=== PATIENT | female | born 1965 | race American Indian/Alaskan Native ===

== ENCOUNTER 2017-03-10 07:47 | Emergency (ER) | payer OTHER ==
[2017-03-10 09:02] LABS: Basophils % (Auto) 0.1 % (0.0-1.8); Eosinophils % (Auto) 0.3 % (0.0-4.3); Hematocrit 43.9 % (30.3-42.9); Hemoglobin 14.8 gm/dl (10.1-14.3); Mean Corpuscular HGB Conc 34 % (30-34); Mean Corpuscular Hemoglobin 31 pg (28-32); Mean Corpuscular Volume 91 fl (79-97); Red Blood Count 4.84 M/mm3 (3.65-5.03); Red Cell Distribution Width 13.9 % (13.2-15.2); White Blood Count 4.5 K/mm3 (4.5-11.0)
[2017-03-10 09:06] LABS: Platelet Count 162 K/mm3 (140-440)
[2017-03-10] MEDS ORDERED: ZOFRAN IV ONE (09:12)
[2017-03-10] MEDS ORDERED: TORADOL IV ONE (09:12)
[2017-03-10] MEDS ORDERED: NACL 0.9% 1000 ML 1,000 ML IV ONE (09:12)
[2017-03-10 09:33] LABS: Alanine Aminotransferase 16 units/L (7-56); Albumin 3.3 g/dL (3.9-5); Albumin/Globulin Ratio 0.8 %; Alkaline Phosphatase 96 units/L (35-129); Anion Gap 19 mmol/L; BUN/Creatinine Ratio 18; Blood Urea Nitrogen 11 mg/dL (7-17); Calcium 8.6 mg/dL (8.4-10.2); Carbon Dioxide 20 mmol/L (22-30); Chloride 102.5 mmol/L (98-107); Glucose 94 mg/dL (65-100); Lipase 50 units/L (13-60); Potassium 4.6 mmol/L (3.6-5.0); Sodium 137 mmol/L (137-145); Total Protein 7.4 g/dL (6.3-8.2)
[2017-03-10] MEDS ORDERED: NACL ONE (09:46)
[2017-03-10] MEDS ORDERED: ZOFRAN ODT PO ONE (10:33)
[2017-03-10] MEDS ORDERED: TORADOL IM ONE (10:33)
--- NOTE | 2017-03-10 12:01 | Emergency Department Report ---
ED Abdominal Pain HPI - General Chief Complaint: Abdominal Pain Stated Complaint: ABDOMINAL PAIN/N/V Time Seen by Provider: 03/10/17 10:26 Source: patient, EMS Mode of arrival: Wheelchair Limitations: No Limitations - History of Present Illness MD Complaint: abdominal pain Onset/Timin (day) -: Gradual Time: 20:00 Location: diffuse Radiation: none Migration to: no migration Severity: moderate Severity scale (0 -10): 0 Quality: cramping Consistency: intermittent Improves With: nothing Worsens With: nothing Context: possible food poisoning (patient says she has some chicken last night which she thinks might have triggered this) Associated Symptoms: nausea, vomiting. denies: diarrhea - Related Data Previous Rx's Medication Instructions Recorded Last Taken Type Dicyclomine [Bentyl] 10 mg PO QID PRN 5 Days #20 capsule 03/10/17 Unknown Rx Ondansetron [Zofran Odt] 4 mg PO Q8HR #20 tab.rapdis 03/10/17 Unknown Rx Allergies Allergy/AdvReac Type Severity Reaction Status Date / Time No Known Allergies Allergy Unverified 03/10/17 07:58 ED Review of Systems ROS: Stated complaint: ABDOMINAL PAIN/N/V Other details as noted in HPI Comment: All other systems reviewed and negative ED Past Medical Hx - Past Medical History Previous Medical History?: No - Surgical History Past Surgical History?: Yes 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 - Social History Smoking Status: Never Smoker Substance Use Type: None - Medications Home Medications: Home Medications Medication Instructions Recorded Confirmed Last Taken Type Dicyclomine [Bentyl] 10 mg PO QID PRN 5 Days #20 capsule 03/10/17 Unknown Rx Ondansetron [Zofran Odt] 4 mg PO Q8HR #20 tab.rapdis 03/10/17 Unknown Rx ED Physical Exam - General Limitations: No Limitations General appearance: alert, in no apparent distress - Head Head exam: Present: atraumatic, normocephalic - Eye Eye exam: Present: normal appearance - ENT ENT exam: Present: mucous membranes moist - Neck Neck exam: Present: normal inspection - Respiratory Respiratory exam: Present: normal lung sounds bilaterally. Absent: respiratory distress - Cardiovascular Cardiovascular Exam: Present: regular rate, normal rhythm. Absent: systolic murmur, diastolic murmur, rubs, gallop - GI/Abdominal GI/Abdominal exam: Present: soft, tenderness (mild periumbilical tenderness), normal bowel sounds - Rectal Rectal exam: Present: deferred - Extremities Exam Extremities exam: Present: normal inspection - Back Exam Back exam: Present: normal inspection - Neurological Exam Neurological exam: Present: alert, oriented X3 - Psychiatric Psychiatric exam: Present: normal affect, normal mood - Skin Skin exam: Present: warm, dry, intact, normal color. Absent: rash ED Course Vital Signs 03/10/17 03/10/17 03/10/17 07:58 08:20 08:30 Temperature 99.4 F Pulse Rate 97 H Respiratory 18 Rate Blood Pressure 119/69 95/51 O2 Sat by Pulse 99 98 100 Oximetry 03/10/17 03/10/17 03/10/17 08:42 08:45 09:00 Temperature Pulse Rate Respiratory 16 Rate Blood Pressure 109/58 96/57 O2 Sat by Pulse 100 100 98 Oximetry 03/10/17 03/10/17 03/10/17 09:15 09:31 09:45 Temperature Pulse Rate Respiratory Rate Blood Pressure 96/57 96/57 96/57 O2 Sat by Pulse 100 100 99 Oximetry 03/10/17 03/10/17 03/10/17 10:01 10:15 10:31 Temperature Pulse Rate Respiratory Rate Blood Pressure 96/57 96/57 96/57 O2 Sat by Pulse 99 100 95 Oximetry 03/10/17 03/10/17 03/10/17 10:45 10:48 11:00 Temperature Pulse Rate Respiratory 14 Rate Blood Pressure 93/45 104/62 O2 Sat by Pulse 100 100 Oximetry 03/10/17 03/10/17 03/10/17 11:15 11:18 11:59 Temperature Pulse Rate Respiratory 16 Rate Blood Pressure 92/54 92/54 O2 Sat by Pulse 95 100 Oximetry 03/10/17 03/10/17 03/10/17 12:01 12:15 12:31 Temperature Pulse Rate Respiratory Rate Blood Pressure 92/54 92/54 92/54 O2 Sat by Pulse 100 99 98 Oximetry 03/10/17 03/10/17 03/10/17 12:45 13:01 13:15 Temperature Pulse Rate Respiratory Rate Blood Pressure 92/54 92/54 100/58 O2 Sat by Pulse 98 98 98 Oximetry 03/10/17 03/10/17 03/10/17 13:30 13:45 14:00 Temperature Pulse Rate 70 74 Respiratory 12 19 Rate Blood Pressure 93/43 89/43 88/42 O2 Sat by Pulse 99 100 99 Oximetry 03/10/17 03/10/17 03/10/17 14:15 14:31 14:45 Temperature Pulse Rate 90 72 71 Respiratory 25 H 22 19 Rate Blood Pressure 86/52 86/52 106/53 O2 Sat by Pulse 95 99 100 Oximetry 03/10/17 03/10/17 03/10/17 15:00 15:15 15:30 Temperature Pulse Rate 71 72 Respiratory 25 H 24 Rate Blood Pressure 111/56 118/55 112/67 O2 Sat by Pulse 99 98 Oximetry 03/10/17 03/10/17 03/10/17 16:03 16:15 16:31 Temperature Pulse Rate 77 83 74 Respiratory 17 14 16 Rate Blood Pressure 112/67 112/67 112/67 O2 Sat by Pulse 100 99 Oximetry 03/10/17 16:45 Temperature Pulse Rate 70 Respiratory 18 Rate Blood Pressure 112/67 O2 Sat by Pulse 100 Oximetry ED Medical Decision Making - Lab Data Result diagrams: 03/10/17 08:45 03/10/17 08:45 - Radiology Data Radiology results: report reviewed Critical care attestation.: If time is entered above; I have spent that time in minutes in the direct care of this critically ill patient, excluding procedure time. ED Disposition Clinical Impression: Food poisoning Disposition: DC-01 TO HOME OR SELFCARE Is pt being admited?: No Condition: Stable Instructions: Abdominal Pain (ED) Prescriptions: Dicyclomine [Bentyl] 10 mg PO QID PRN 5 Days #20 capsule PRN Reason: abdominal cramps Ondansetron [Zofran Odt] 4 mg PO Q8HR #20 tab.rapdis Referrals: CYNDI QUINONES MD [Primary Care Provider] - 3-5 Days Time of Disposition: 16:29 Print Language: HUNGARIAN
[2017-03-10] MEDS ORDERED: MORPHINE IV ONE (13:29)
[2017-03-10] MEDS ORDERED: PERCOCET 5/325 PO ONE (13:53)
[2017-03-10] MEDS ORDERED: NACL 0.9% 1000 ML 1,000 ML ONE (14:22)
[2017-03-10 16:23] LABS: Bacteria,Urine 1+ /HPF (Negative); Bilirubin,Urine NEG (Negative); Blood,Urine NEG (Negative); Ketones,Urine NEG (Negative); Leukocyte Esterase,Urine NEG (Negative); Mucus,Urine FEW /HPF; Nitrite,Urine NEG (Negative); Protein,Urine <15 mg/dL mg/dL (Negative); Urobilinogen,Urine < 2.0 mg/dL (<2.0)
[2017-03-10 16:49] VITALS: BP 112/67
--- NOTE | 2017-03-13 08:44 | Cat Scan Report ---
FINAL REPORT PROCEDURE: CT ABD AND PELVIS WO CONTRAST TECHNIQUE: Computerized axial tomography of the abdomen and pelvis was performed without intravenous contrast. This study is performed without intravascular contrast material and its sensitivity for abdominal and pelvic pathology, including neoplasms, inflammation, abscess, free fluid, thrombosis, arterial dissection and infarction, is reduced compared with a contrast enhanced study. HISTORY: Abdominal pain COMPARISON: No prior studies are available for comparison. FINDINGS: Lower Lung seaman: There is a noncalcified 7 millimeter nodule in the left lower lobe image 14 series 3. Upper Abdomen: Postsurgical changes are seen involving the stomach and loops of bowel in the upper mid abdomen anteriorly suggesting prior gastric bypass procedure. The unenhanced images of the liver, the gallbladder, the adrenal glands, the pancreas and the spleen are unremarkable. Kidneys, Ureters and Urinary bladder: No abnormalities are identified. Retroperitoneum: Abdominal aorta appears normal. No evidence of aneurysm. Nonspecific subcentimeter lymph nodes are seen in the retroperitoneum. No pathologically enlarged lymph nodes are identified. Bowel: Bowel loops are unremarkable with exception of the above-mentioned postsurgical change.. No evidence of bowel obstruction ascites or free intraperitoneal gas. Normal-appearing appendix is seen in the right lower quadrant. On the coronal images there appears to be twisting of the mesenteric vessels in the vertical plane. This is visualized when reviewing images 58 through image 80 series 200 coronal reconstructions. Postsurgical volvulus suspected. I do not see evidence of bowel obstruction. There is however mild nonspecific prominence of lymph nodes in the mesentery. These measure up to 13 millimeters x 7 millimeters. There is minimal increased density in the adjacent mesentery. I cannot exclude mild mesenteric adenitis. Reproductive organs: Uterus is deviated to the right of midline. The uterus is slightly lobulated and contains some coarse calcifications. Uterine fibroids are suspected. No abnormal adnexal masses are seen. Other: No acute bony abnormalities are visualized. 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 I do not see any evidence of bowel obstruction however there is minimal edema in the mesentery and there appears to be mild prominence of the lymph nodes in the mesenteric root. These findings are of uncertain significance given their subtle nature. No ascites is visualized. Correlation of these findings the patient's clinical presentation is necessary. Prior gastric bypass procedure. Uterus is lobulated and contains coarse calcifications suggesting uterine fibroids. Uterus and adnexa otherwise are unremarkable. .
== END 2017-03-10 17:19 | disposition home or self-care (01) ==
LOC: ED 07:47
DX: T62.8X1A Toxic effect of other specified noxious substances eaten as food, accidental (unintentional), initial encounter (principal); Y92.89 Other specified places as the place of occurrence of the external cause
CPT/HCPCS: 36415; 74176; 80053; 81001; 83690; 85025; 96360; 96372; 99284; J1885; J7030; 96361; J2270; J2405; Q0162